=== PATIENT | male | born 1960 | race Caucasian/White ===

== ENCOUNTER → 2024-05-22 | Outpatient (CLI) | payer BC, SELFPAY ==
[2024-05-22 08:43] LABS: ALB/GLOB Ratio 1.2 RATIO (0.9-2.4); AST(SGOT) 17 U/L (15-37); Alanine Aminotransfer ALT/SGPT 20 U/L (16-61); Albumin, Serum 3.7 g/dL (3.2-5.0); Alkaline Phosphatase 101 U/L (45-117); Anion Gap 5 (5-15); BUN 18 mg/dL (7-18); BUN/Creat Ratio 17.6 RATIO (10-20); Calcium,Total 8.8 mg/dL (8.5-10.1); Chloride 108 mmol/L (98-107); Cholesterol 170 mg/dL (200); Creatinine, Serum 1.02 mg/dL (0.70-1.30); EST Glomerular Filtration Rate 78 mL/min (>60); Est Glom Filt Rate - Afr Amer 94 mL/min (>60); Globulin 3.2 g/dL (2.2-4.2); Glucose 109 mg/dL (74-106); High Density Lipoprotein 60 mg/dL; Potassium 4.1 mmol/L (3.5-5.1); Protein, Total 6.9 g/dL (6.4-8.2); Sodium Level 141 mmol/L (136-145); Triglycerides 104 mg/dL; Very Low Density Lipoprotein 21 mg/dL (5-40)
== END | disposition home or self-care (01) ==
LOC: LAB 07:52
PROVIDERS: Referring Provider Internal Medicine Cardiovascular Disease; Visit Provider Internal Medicine Cardiovascular Disease
DX: E78.5 Hyperlipidemia, unspecified (principal); G70.9 Myoneural disorder, unspecified; I48.0 Paroxysmal atrial fibrillation; R73.9 Hyperglycemia, unspecified; I10 Essential (primary) hypertension
CPT/HCPCS: 36415; 80053; 80061; 84443

== ENCOUNTER → 2024-06-02 | Outpatient (CLI) | payer BC, SELFPAY ==
--- NOTE | 2024-06-02 07:14 | ECHOD_ITS ---
Reason For Study: ATRIAL FIBRILLATION Procedure This was a 2D Doppler, Color Flow transthoracic echocardiogram. Exam performed in department. Left Ventricle Normal LV size. Mild concentric left ventricular hypertrophy. The left ventricular ejection fraction is 60 %. Stage 1 diastolic dysfunction. Right Ventricle Normal right ventricle. Atria The left and right atria are normal. Mitral Valve Trivial mitral valve insufficiency. Tricuspid Valve Trivial tricuspid valve insufficiency. Normal pulmonary artery pressure. Aortic Valve Trisinus/trileaflet aortic valve. Mild diffuse aortic valve leaflet thickening. Mild aortic valve regurgitation. Pulmonic Valve The pulmonic valve is not well visualized. Great Vessels Mildly dilated aortic root. Pericardium/Pleural No pericardial effusion. MMode/2D Measurements & Calculations LVIDd: 5.1 cm IVSd: 1.4 cm LVOT diam: 2.3 cm LVIDs: 2.8 cm LVPWd: 1.2 cm LVOT area: 4.1 cm2 RVDd: 4.0 cm FS: 44.8 % asc Aorta Diam: 4.1 cm LAV(MOD-bp): 50.7 ml LVAd ap4: 25.6 cm2 LAV(MOD-bp) Indexed: 22.2 ml/m2 LVLd ap4: 7.6 cm LAV(MOD-sp2): 48.4 ml EDV(MOD-sp4): 70.5 ml LAV(MOD-sp4): 47.1 ml EDV(sp4-el): 73.4 ml LVAs ap4: 13.8 cm2 LVLs ap4: 6.2 cm ESV(MOD-sp4): 25.5 ml ESV(sp4-el): 26.1 ml EF(MOD-sp4): 63.9 % EF(sp4-el): 64.4 % LVAd ap2: 26.3 cm2 SV(MOD-sp4): 45.1 ml SV(MOD-sp2): 45.2 ml LVLd ap2: 8.0 cm SI(MOD-sp4): 19.8 ml/m2 SI(MOD-sp2): 19.9 ml/m2 EDV(MOD-sp2): 72.2 ml EDV(sp2-el): 73.2 ml LVAs ap2: 15.0 cm2 LVLs ap2: 7.2 cm ESV(MOD-sp2): 27.0 ml ESV(sp2-el): 26.7 ml EF(MOD-sp2): 62.6 % SV(sp4-el): 47.3 ml Ao sinus diam: 3.[address] Junction: 3.4 cm LA dimension(2D): 3.9 cm LA A4 area: 16.7 cm2 RA A4 area: 12.4 cm2 TAPSE: 2.4 cm Time Measurements MV dec time: 0.38 sec Doppler Measurements & Calculations MV E max lenard: 42.7 cm/sec Lat Peak E' Lenard: 10.4 cm/sec Med Peak E' Lenard: 5.8 cm/sec MV A max lenard: 61.4 cm/sec E/E' lat: 4.1 E/E' med: 7.4 MV E/A: 0.69 MV dec slope: 112.3 cm/sec2 Ao V2 max: 110.0 cm/sec LV V1 max: 85.6 cm/sec Ao max P.8 mmHg LV V1 max P.9 mmHg Ao V2 mean: 79.0 cm/sec LV V1 mean P.6 mmHg Ao mean P.7 mmHg LV V1 mean: 59.3 cm/sec Ao V2 VTI: 21.6 cm LV V1 VTI: 18.5 cm AV (velocity ratio): 0.85 GEOVANNI(I,D): 3.5 cm2 GEOVANNI(V,D): 3.2 cm2 SV(LVOT): 75.6 ml PA V2 max: 65.1 cm/sec TR max lenard: 206.4 cm/sec TR max P.0 mmHg ECHO/Echo Complete Interpretation Summary Mild concentric left ventricular hypertrophy. The left ventricular ejection fraction is 60 %. Stage 1 diastolic dysfunction. Mild diffuse aortic valve leaflet thickening. Mild aortic valve regurgitation. Mildly dilated aortic root. Ordering Physician: Desiree Craft Referring Physician: Desiree Craft MD Performed By: Kimmy Pierson [facility]
--- NOTE | 2024-06-03 08:40 | STRESSREP_ITS ---
Stress Test Report Date: 06/02/2024 Procedure: Exercise tolerance test/imaging study Indications: Paroxysmal atrial fibrillation Consent: Per the patient Procedure: The patient exercised on a Umair protocol for 9 minutes and 30 seconds achieving a peak heart rate of 136 bpm (87% predicted maximal heart rate) with a peak blood pressure 188/78 mmHg and a peak MET capacity of 11.6 METs. The baseline ECG demonstrated sinus rhythm. The peak exercise ECG demonstrated sinus tachycardia with no ischemic changes. There were no cardiac dysrhythmias pretest, during exercise, or recovery. The functional capacity was considered very good. There was no complaint of chest discomfort during exercise or recovery. The examination was discontinued secondary to target heart rate being achieved. The patient was injected with 14.3 mCi of technetium 99m Cardiolite and subsequently rest SPECT Cardiolite nuclear imaging was obtained in the horizontal long, vertical long, and short axis views. Post-exercise, the patient was injected with 44.5 mCi of technetium 99m Cardiolite and subsequently stress SPECT Cardiolite nuclear imaging was obtained in the horizontal long, vertical long, and short axis views. A gated Cardiolite study at peak stress was obtained. Rest and stress SPECT Cardiolite nuclear imaging status post realignment, and normalization demonstrates a moderate size reversible perfusion defect of the inferior wall and inferior septum post stress. Mild intensity.. There is end systolic thickening and brightening. The gated Cardiolite study demonstrates myocardial thickening and inward wall motion. The reported LVEF is 63%. Impression: 1. Technically adequate (percent predicted maximal heart rate greater than 85%) exercise tolerance test 2. Peak exercise ECG with no ischemic changes 3. There were no cardiac dysrhythmias pretest, during exercise, or recovery 4. Rest and stress SPECT Cardiolite nuclear imaging demonstrate inferior and inferior septal reversible perfusion defect of mild intensity, suggestive of mild ischemia.. 5. The gated Cardiolite study reports an LVEF of 63%. This note was generated with [employer] software. It may contain incorrect words, spelling, and punctuation that were not noted in checking the note before signing.
== END | disposition home or self-care (01) ==
LOC: CVS 07:13
PROVIDERS: Referring Provider Internal Medicine Cardiovascular Disease; Visit Provider Internal Medicine Cardiovascular Disease
DX: E78.5 Hyperlipidemia, unspecified (principal); I48.0 Paroxysmal atrial fibrillation; I10 Essential (primary) hypertension; I35.0 Nonrheumatic aortic (valve) stenosis
CPT/HCPCS: 78452; 93017; 93306; A9500; A4216

== ENCOUNTER → 2024-10-13 | Outpatient (CLI) | payer BC, SELFPAY ==
--- NOTE | 2024-10-13 15:22 | NEURO ---
NCS and/or EMG Patient Report Ordering Doctor: Magdalena Joya DATE OF SERVICE: 10/13/24 David presents with complaints of numbness and tingling and weakness in both feet. He reports pain to be most significant in the middle of the night. 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 Symptoms are recurred for the past several months. Electrodiagnostic findings: Right peroneal motor nerve demonstrates prolonged latency with reduced amplitude and reduced conduction velocity. Left peroneal motor nerve demonstrates no response. Right tibial motor demonstrates prolonged latency with reduced amplitude reduced conduction velocity. Left tibial motor nerve demonstrates prolonged distal latency with reduced amplitude and reduced conduction velocity. Prolonged tibial F?wave bilaterally. Prolonged right peroneal F?wave. Prolonged H?reflex bilaterally. Sensory responses are not obtainable. Needle EMG testing was performed the lower limbs. Diminished recruitment pattern noted bilaterally in the gastrocnemius and tibialis anterior. Electrodiagnostic impression: This is an abnormal study in the lower limbs. 1. Electrodiagnostic findings are suggestive of an advanced peripheral polyneuropathy, with motor and sensory nerve involvement, and with evidence of axonal and demyelinating features. 2. No electrodiagnostic evidence is noted for lumbosacral radiculopathy. Multi Select Codes Neurology Neurology Interp Codes: 19016-72 Musc test done w/n test comp (interp) (2) and 89056-43 Nrv cndj test 9-10 studies (interp)
== END | disposition home or self-care (01) ==
PROVIDERS: PCP Nurse Practitioner Family
DX: G61.81 Chronic inflammatory demyelinating polyneuritis (principal)
CPT/HCPCS: 95886; 95911

== ENCOUNTER → 2024-12-08 | Outpatient (CLI) | payer OTHER, SELFPAY ==
[2024-12-08 13:01] VITALS: BP 174/91; PULSE 58; RESP 16; O2SAT 100; BMI 32.8
[2024-12-08 13:17] VITALS: PULSE 55
[2024-12-08] MEDS: Nitroglycerin SL (ED/IMG/CATH) 0.4 MG TABLET SL (13:17)
[2024-12-08 13:20] VITALS: BP 158/97; PULSE 58; RESP 16; O2SAT 98
--- NOTE | 2024-12-13 20:38 | CCTA.WCONT ---
CCTA w/Cont Coronary Arteries Date of Study:: 12/08/24 Dyspnea on exertion Coronary Calcium Scoring: High-resolution Computed Tomographic imaging of the chest was performed on [12/08/2024], with particular attention paid to the coronary arteries. Intravenous contrast agent was administered per protocol and images reconstructed and displayed. LEFT MAIN CORONARY ARTERY: Arises from the left main coronary artery bifurcates the left anterior descending artery left circumflex artery. No high-grade stenosis is present. [] LEFT ANTERIOR DESCENDING CORONARY ARTERY: Arises from the left main coronary artery with proximal focal calcification present. The vessel then continues towards the apex of the ventricle no high-grade stenosis noted mild diffuse irregularities are present. [] LEFT CIRCUMFLEX CORONARY ARTERY: Nondominant vessel with no significant atherosclerotic plaquing or high-grade disease noted. [] RIGHT CORONARY ARTERY: Dominant right right coronary artery arising from the right coronary cusp with no significant atherosclerotic plaquing present. [] THORACIC AORTA: [] PULMONARY ARTERY: [] LEFT ATRIUM/APPENDAGE: [] MITRAL VALVE: [] AORTIC VALVE: [] LEFT VENTRICLE: [] CORONARY CALCIUM SCORE: [] Findings Coronary Artery Left Main (LM): 0 Left Anterior Descending (LAD): 36 Left Circumflex (LCX): 0 Right Coronary Artery (RCA): 0 Total Agatston Score: 36 Percentile Rankin- 50th percentile Calcium Scoring Interpretation: Different methods to categorize the overall amount of coronary plaque. Overall amount CAC SIS Visual of coronary plaque P1 Mild -100 <2 1-2 vessels with mild amount of plaque P2 Moderate 101-300 3-4 1-2 vessels with moderate amount, 3 vessels with mild amount of plaque P3 Severe 301-999 5-7 3 vessels with moderate amount, 1 vessel with severe amount of plaque P4 Extensive >1000 >8 2-3 vessels with severe amount of plaque Calcium Score: Mild: 1-2 vessels w/mild amount of plaque Conclusion: Mild atherosclerotic plaquing noted in the left anterior descending artery territory.
== END | disposition home or self-care (01) ==
LOC: CT 12:50
PROVIDERS: PCP Nurse Practitioner Family; Referring Provider Internal Medicine Cardiovascular Disease; Visit Provider Internal Medicine Cardiovascular Disease
DX: R94.39 Abnormal result of other cardiovascular function study (principal); R06.09 Other forms of dyspnea
CPT/HCPCS: 75574

== ENCOUNTER 2025-04-10 13:35 | Emergency (ER) | payer OTHER, SELFPAY ==
[2025-04-10 13:35] VITALS: BP 144/86; PULSE 63; RESP 15; TEMP 36.8; O2SAT 98; BMI 33.5
--- NOTE | 2025-04-10 13:58 | EX.ED.VIS.EY ---
HPI History of Present Illness Chief Complaint: Eye Problem Narrative Narrative: Patient is a 64-year-old male presenting to the emergency department for a right eye that he noticed over the weekend. Patient is on Eliquis. Patient denies any headache or visual changes. Denies any blurry vision, double vision or spots in his vision. Denies any itching or pain in his eye. Denies any normal drainage from his eye. Denies any head trauma or falls. [facility] Medical History Retinal detachment Ruptured lumbar disc Urethral polyp Tremor Subcutaneous nodules Nodular hyperplasia of liver Tear of MCL (medial collateral ligament) of knee Hematuria Double vision Dizziness Bilateral hearing loss Anaplasmosis Home Medications ?Medication ?Instructions ?Recorded ?Last Taken ?Type apixaban 5 mg tablet (Eliquis) 5 mg PO BID 05/10/24 Unknown History bimatoprost 0.01 % eye drops 1 drp ophthalmic (eye) QDAY 05/10/24 Unknown History (Isamar) cyclobenzaprine 10 mg tablet 10 mg PO TID PRN muscle spasm 05/10/24 Unknown History dorzolamide 22.3 mg-timolol 6.8 1 drp ophthalmic (eye) BID 05/10/24 Unknown History mg/mL eye drops tamsulosin 0.4 mg capsule 0.4 mg PO QDAY 05/10/24 Unknown History lisinopril 20 1 tab PO QDAY #90 tabs 05/12/24 Unknown Rx mg-hydrochlorothiazide 25 mg tablet metoprolol succinate 25 mg 12.5 mg PO QDAY 05/12/24 Unknown History tablet,extended release 24 hr Allergy/AdvReac Type Severity Reaction Status Date / Time cephalexin (From Keflex) Allergy Severe Hives Verified 04/10/25 13:38 Gadolinium-MRI Contrast Allergy Mild dizziness Verified 04/10/25 13:38 Medium meperidine (From Demerol) Allergy Nausea/Vom/ Verified 04/10/25 13:38 Diarrhea Family History Father Cancer Lung Nephrolithiasis Alcohol abuse Sister Carpal tunnel syndrome Son Brain tumor Grandmother Deep vein thrombosis (DVT) Alzheimer disease Grandfather Myocardial infarction Surgical History History of cardioversion (10/24/22) History of refractive surgery H/O cataract removal with insertion of prosthetic lens History of appendectomy History of colonoscopy Social History household members: spouse current occupational status: employed current occupation: Technical senior application software engineer sexually active: Yes Smoking Status: Former smoker Electronic Cigarette Use: not used alcohol intake: current alcohol intake frequency: a few times a week substance use type: marijuana and other details: Uses medical marijuana ROS ROS ED ROS Narrative see HPI EXAM Physical Exam Narrative Exam Narrative: Vital signs: Reviewed General: Alert and oriented. No acute distress HEENT: Head is normocephalic and atraumatic, sinuses nontender. Right pupil was fixed and dilated from prior retinal detachment surgery. Left pupil is round and reactive. There is a subconjunctival hemorrhage in the medial portion of the left eye with clear demarcation of white normal sclera on the left lateral portion of the conjunctiva. There is no drainage or crusting in or around the eye. Normal extraocular movements. Nares are patent. Oropharynx and throat exams normal. Neck: Supple without lymphadenopathy nontender Cardiovascular: Regular rate and rhythm, no murmurs. No rubs or gallops. Normal S1 and S2 Respiratory: Clear to auscultation bilaterally. No wheezes, rales, rhonchi Abdominal: Soft and nontender. Normal bowel sounds. No guarding or rebound. Nonsurgical abdomen Extremities: No tenderness. No bruising. Normal range of motion. Normal sensation. Skin: No rash or redness. Neurological: Cranial nerves II through XII are grossly intact. Normal strength and sensation. Normal cerebellar function The rest of the physical exam is unremarkable Const Vital Signs: 04/10/25 13:35 Temperature 98.3 F Temperature Source Oral Pulse Rate 63 Respiratory Rate 15 Blood Pressure 144/86 H Blood Pressure Mean 105 Pulse Ox 98 Oxygen Delivery Method Room Air MDM MDM MDM Narrative Medical decision making narrative: Patient is a 64-year-old male presenting to the emergency department for a red eye. Patient was seen and examined. Vitals are stable. Patient resting bed comfortably no acute distress. Physical exam consistent with a subconjunctival hemorrhage in the medial portion of the left eye. There are no visual changes or pain. No headache. Normal unreactive pupil on the left. I do not suspect other causes of right eye including acute angle closure glaucoma, conjunctivitis, keratitis. Patient and at bedside were educated on supportive care. Instructed that it will start to improve over the next 2 weeks. Instructed to follow-up with ophthalmology as possible and to return to the emergency department with any new or worsening symptoms including headache, vision changes itching, drainage from the eye. Before nursing staff was able to obtain visual acuity the patient had left the emergency department. However patient did report to me that there is no visual changes in his eye. He did not receive discharge paperwork however I did discuss the diagnosis and the follow-up that was needed with return precautions. Clinical impression Subconjunctival hemorrhage History & Record Review Discussion w/independent historian: Patient and Significant other Discharge Plan Triage Chief Complaint: Eye Problem ED Provider: Ceci Barrow Dx/Rx/DC Orders Prescriptions: No Action cyclobenzaprine 10 mg tablet 10 mg PO TID PRN (Reason: muscle spasm) dorzolamide-timolol 22.3-6.8 mg/mL drops 1 drp ophthalmic (eye) BID Eliquis 5 mg tablet 5 mg PO BID Lumigan 0.01 % drops 1 drp ophthalmic (eye) QDAY tamsulosin 0.4 mg capsule 0.4 mg PO QDAY metoprolol succinate 25 mg tablet extended release 24 hr 12.5 mg PO QDAY lisinopril-hydrochlorothiazide 20-25 mg tablet 1 tab PO QDAY Qty: 90 3RF Primary Care Provider: Marie Larsen Referrals: Marie Larsen, FAMILY [facility] [Primary Care Provider, Family Practice] Print Language: Nepalese Disposition Disposition: Home, Self Care Discharge Date/Time: 04/10/25 14:24
[2025-04-10 14:04] VITALS: BP 144/86; PULSE 63; RESP 15; TEMP 36.8; O2SAT 98
== END 2025-04-10 14:24 | disposition home or self-care (01) ==
LOC: ED 14:03
PROVIDERS: Emergency Provider Student in an Organized Health Care Education/Training Program; PCP Nurse Practitioner Family; Visit Provider Student in an Organized Health Care Education/Training Program
DX: H11.32 Conjunctival hemorrhage, left eye (principal); Z79.01 Long term (current) use of anticoagulants; Z87.891 Personal history of nicotine dependence
CPT/HCPCS: 99282

== ENCOUNTER → 2025-05-13 | Outpatient (CLI) | payer OTHER, SELFPAY ==
[2025-05-13 09:16] LABS: FOLATES,SERUM (FOLIC ACID) 12.60 ng/mL (4.60-34.80)
[2025-05-13 09:21] LABS: Vitamin B12 417 pg/mL (180-914)
[2025-05-18 22:07] LABS: ANTINUCLEAR ANTIBODIES DIRECT Negative (Negative); Methylmalonic Acid Bld 210 nmol/L (0-378)
[2025-05-24 00:07] LABS: Arsenic 7245 3 ug/L (0-9); Immunoglobulin A 86 mg/dL (61-437); Immunoglobulin G 1035 mg/dL (603-1613); Immunoglobulin M 85 mg/dL (20-172); Lead, Blood < 1.0 ug/dL (0.0-3.4); Mercury, Blood 85324 < 1.0 ug/L (0.0-14.9); PROEL- A/G Ratio 1.3 (0.7-1.7); PROEL- Albumin 3.7 g/dL (2.9-4.4); PROEL- Alpha-1 Globulin 0.2 g/dL (0.0-0.4); PROEL- Alpha-2 Globulin 0.6 g/dL (0.4-1.0); PROEL- Beta Globulin 0.9 g/dL (0.7-1.3); PROEL- Gamma Globulin 1.0 g/dL (0.4-1.8); PROEL- Globulin, Total 2.8 g/dL (2.2-3.9); PROEL- TOTAL PROTEIN 6.5 g/dL (6.0-8.5); PROEL-M-Spike Not Observed g/dL (Not Observed); VITAMIN B6 8.2 ug/L (3.4-65.2); Vitamin B1, Thiamine 154.8 nmol/L (66.5-200.0)
== END | disposition home or self-care (01) ==
PROVIDERS: PCP Nurse Practitioner Family
DX: R20.2 Paresthesia of skin (principal); R53.1 Weakness
CPT/HCPCS: 36415; 82175; 82607; 82746; 82784; 83655; 83825; 83883; 83921; 84165; 84207; 84425; 85652; 86038; 86334